=== PATIENT | male | born 2000 | race African-American/Black ===

== ENCOUNTER 2020-10-01 12:18 | Emergency (ER) | payer MEDICAID, OTHER ==
[~2020-10-01] VITALS: Ht 172.7 cm; Wt 86.2 kg
[2020-10-01 12:24] VITALS: BP 131/83
[2020-10-01] MEDS ORDERED: IBUPROFEN 400 MG TABLET ONE (13:00)
[2020-10-01] MEDS ORDERED: IBUPROFEN 400 MG TABLET PO ONE (13:00)
[2020-10-01] MEDS ORDERED: HYDROCODONE/APAP 5/325MG TABLET PO ONE (13:00)
[2020-10-01] MEDS ORDERED: HYDROCODONE/APAP 5/325MG TABLET ONE (13:00)
[2020-10-01] MEDS ORDERED: HYDR-3972 PO (13:01)
[2020-10-01] MEDS ORDERED: IBUP-1957 PO (13:01)
== END 2020-10-01 13:47 | disposition home or self-care (01) ==
LOC: ER 12:18
DX: S62.337A Displaced fracture of neck of fifth metacarpal bone, left hand, initial encounter for closed fracture (principal); F17.200 Nicotine dependence, unspecified, uncomplicated; W22.01XA Walked into wall, initial encounter; Y93.89 Activity, other specified; Y92.89 Other specified places as the place of occurrence of the external cause; Y99.8 Other external cause status
CPT/HCPCS: 73130-TC